=== PATIENT | female | born 1995 | race American Indian/Alaskan Native ===

== ENCOUNTER 2019-11-05 10:05 | Inpatient (IN) | payer MEDICAID ==
[2019-11-05] MEDS ORDERED: ceFAZolin/Water 2 GM/20 ML 2 GM/20 ML SYRINGE IV NR (11:00)
[2019-11-05] MEDS ORDERED: OXYTOCIN 20 UNIT/1000ML DRIP 20 UNITS/1,000 ML BAG IV SCH ×2 (11:00→15:00)
[2019-11-05 11:04] LABS: Basophils # (Auto) 0.1 K/mm3 (0.0-0.1); Basophils % (Auto) 0.7 % (0.0-1.8); Eosinophils # (Auto) 0.2 K/mm3 (0.0-0.4); Eosinophils % (Auto) 1.8 % (0.0-4.3); Hematocrit 35.2 % (30.3-42.9); Hemoglobin 11.6 gm/dl (10.1-14.3); Lymphocytes # (Auto) 3.9 K/mm3 (1.2-5.4); Lymphocytes % (Auto) 31.4 % (13.4-35.0); Mean Corpuscular HGB Conc 33 % (30-34); Mean Corpuscular Volume 83 fl (79-97); Monocytes # (Auto) 0.7 K/mm3 (0.0-0.8); Platelet Count 177 K/mm3 (140-440); Red Blood Count 4.23 M/mm3 (3.65-5.03)
[2019-11-05] MEDS: LACTATED RINGERS 1,000 ML IV SCH ×2 (11:14→12:12)
[2019-11-05] MEDS ORDERED: BICITRA ORAL LIQD 30ML PO NR (11:30)
[2019-11-05] MEDS ORDERED: FAMOTIDINE 20 MG/2 ML INJ IV SCH (11:30)
[2019-11-05] MEDS ORDERED: METOCLOPRAMIDE 10 MG/2 ML INJ IV SCH (11:30)
--- NOTE | 2019-11-05 12:36 | Anesthesia Consultation ---
Anesthesia Consult and Med Hx Date of service: 11/05/19 - Airway Anesthetic Teeth Evaluation: Good ROM Head & Neck: Adequate Mental/Hyoid Distance: Adequate Mallampati Class: Class II Intubation Access Assessment: Good - Pulmonary Exam CTA: Yes - Cardiac Exam Cardiac Exam: RRR - Pre-Operative Health Status ASA Pre-Surgery Classification: ASA2 Proposed Anesthetic Plan: Spinal - Pulmonary Hx Asthma: No COPD: No Hx Pneumonia: No - Cardiovascular System Hx Hypertension: No - Central Nervous System Hx Seizures: No Hx Psychiatric Problems: No - Endocrine Hx Renal Disease: No Hx End Stage Renal Disease: No Hx Hypothyroidism: No Hx Hyperthyroidism: No - Hematic Hx Anemia: No Hx Sickle Cell Disease: No - Other Systems Hx Alcohol Use: No
[2019-11-05] MEDS ORDERED: PROMETHAZINE 25 MG RECT SUPP PR PRN (12:43)
[2019-11-05] MEDS ORDERED: PROMETHAZINE 25 MG TAB PO PRN (12:43)
[2019-11-05] MEDS ORDERED: HYDROmorphone 1 MG/1 ML INJ IV PRN (12:43)
[2019-11-05] MEDS ORDERED: NALOXONE 0.4 MG/1 ML INJ IV PRN ×2 (12:43→14:21)
--- NOTE | 2019-11-05 12:43 | Anesthesia Day of Surgery ---
Anesthesia Day of Surgery - Day of Surgery Patient Examined: Yes Patient H&P Reviewed: Yes Patient is NPO: Yes
[2019-11-05] MEDS ORDERED: ceFAZolin/STERILE WATER 2 GM/20 ML SYRINGE IV ONE (12:58)
[2019-11-05] MEDS ORDERED: BUPIVACAINE /DEX-WATER 0.75% (2 ML) AMPULE INFILTRATI ONE (12:58)
[2019-11-05] MEDS ORDERED: DEXMEDETOMIDINE 200 MCG/2 ML VIAL IV ONE (12:58)
[2019-11-05] MEDS ORDERED: ONDANSETRON 4 MG/2 ML INJ IV PRN ×2 (13:00→14:21)
--- NOTE | 2019-11-05 13:03 | History and Physical Report ---
History of Present Illness Date of examination: 11/05/19 Date of admission: 11/05/19 10:05 Chief complaint: here for a second History of present illness: MAMADOU [determined by [facility]/MFM] Past History Past Surgical History: section - Obstetrical History Expected Date of Delivery: 11/04/19 Actual Gestation: 40 Week(s) 1 Day(s) : 2 Medications and Allergies Allergies Allergy/AdvReac Type Severity Reaction Status Date / Time No Known Allergies Allergy Verified 11/05/19 10:56 Home Medications Medication Instructions Recorded Confirmed Last Taken Type Vit-Fe Fumar-FA [ 1 tab PO QDAY 11/05/19 11/05/19 11/03/19 08:00 History Vitamin] Active Meds: Active Medications Citric Acid/Sodium Citrate (Bicitra) 30 ml PO ONCE NR Stop: 11/05/19 18:00 Last Admin: 11/05/19 12:11 Dose: 30 ml Documented by: Famotidine (Pepcid) 20 mg IV ONCE GABY Last Admin: 11/05/19 12:11 Dose: 20 mg Documented by: Hydromorphone HCl (Dilaudid) 0.5 mg IV Q5M PRN PRN Reason: BREAK Stop: 11/05/19 23:00 Oxytocin/Sodium Chloride (Pitocin/Ns 20 Unit/1000ml Drip) 20 units in 1,000 mls @ 0 mls/hr IV TITR GABY Lactated Ringer's (Lactated Ringers) 1,000 mls @ 2,250 mls/hr IV PREOP GABY Stop: 11/06/19 11:27 Last Admin: 11/05/19 12:12 Dose: 2,250 mls/hr Documented by: Cefazolin Sodium (Ancef/Sterile Water 2 Gm/20 Ml) 2 gm in 20 mls @ 80 mls/hr IV PREOP NR; Protocol Stop: 11/05/19 19:00 Metoclopramide HCl (Reglan) 10 mg IV ONCE GABY Stop: 11/05/19 18:00 Last Admin: 11/05/19 12:11 Dose: 10 mg Documented by: Naloxone HCl (Naloxone) 0.2 mg IV Q2MIN PRN PRN Reason: Res Rate </= 8 or 02 SAT < 92% Ondansetron HCl (Zofran) 4 mg IV Q8H PRN PRN Reason: Nausea And Vomiting Promethazine HCl (Phenergan) 25 mg PO Q6H PRN PRN Reason: Nausea And Vomiting Promethazine HCl (Phenergan) 25 mg HI Q6H PRN PRN Reason: Nausea And Vomiting Sodium Chloride (Sodium Chloride Flush Syringe 10 Ml) 10 ml IV PRN NR Stop: 11/15/19 12:59 Review of Systems All systems: negative - Vital Signs Vital signs: Vital Signs Temp Resp 98.3 F 11/05/19 12:21 11/05/19 12:21 Temp Pulse Resp BP Pulse Ox 98.3 F 11/05/19 12:21 11/05/19 12:21 - Physical Exam Lungs: Positive: Normal air movement Abdomen: Positive: distention. Negative: tenderness - Obstetrical FHR: auscultation normal Results Result Diagrams: 11/05/19 10:45 Abnormal lab results 11/05/19 Range/Units 10:45 WBC 12.3 H (4.5-11.0) K/mm3 All other labs normal. Assessment and Plan - Patient Problems (1) Previous delivery, antepartum Current Visit: Yes Status: Acute Plan to address problem: vs repeat discussed. Patient consented for and lysis of adhesions.
[2019-11-05] MEDS ORDERED: SODIUM CHLORIDE 0.9% IRR 1,500 ML BOTTLE IR ONE (13:27)
[2019-11-05] MEDS ORDERED: WATER FOR IRRIG STERILE 1,500 ML BOTTLE IR ONE (13:27)
[2019-11-05] MEDS ORDERED: dexAMETHasone 20 MG/5 ML VIAL ONE (14:15)
[2019-11-05] MEDS ORDERED: PHENYLEPHRINE/NS 1,000 MCG/10 ML SYRINGE (OR USE) IV ONE (14:15)
[2019-11-05] MEDS ORDERED: diphenhydrAMINE 50 MG/ML VIAL ONE (14:15)
[2019-11-05] MEDS ORDERED: ONDANSETRON 4 MG/2 ML INJ ONE (14:15)
[2019-11-05] MEDS ORDERED: OXYTOCIN 10 UNIT/1 ML INJ ONE (14:15)
[2019-11-05] MEDS ORDERED: KETOROLAC 30 MG/1 ML INJ ONE (14:16)
[2019-11-05] MEDS ORDERED: LANOLIN/ZINC/DIMETHICONE (LANSINOH) 7 GM TP PRN (14:21)
[2019-11-05] MEDS ORDERED: ACETAMINOPHEN 325 MG TAB PO PRN (14:21)
[2019-11-05] MEDS ORDERED: WITCH HAZEL/ GLYCERIN PAD TP PRN (14:21)
[2019-11-05] MEDS ORDERED: MORPHINE 4 MG/1 ML INJ IV PRN (14:21)
--- NOTE | 2019-11-05 14:29 | Operative Report ---
Operative Report Operative Report: Date of surgery: 11/05/2019 Preoperative diagnoses: Term , previous section, probable adhesions Postoperative diagnoses: The same. No adhesions were found. Operation: Lower segment transverse delivery Surgeon:Liza Cruz MD Pension Fund Manager: Jen Pathak CRNA Anesthesia: Spinal block Estimated blood loss:400 mL Complications: None Findings: There was a live baby girl in cephalic presentation weighing 6 pounds 14 ounces with Apgars of 8/9. The ovaries, fallopian tubes and the uterus were all grossly normal. No peritoneal adhesions were found within the pelvis. Procedure in detail: The patient was taken to the operating room and given a spinal block. Patient was placed in the straight supine position and a Brady catheter was inserted. The patient was prepped in the abdomen. The drapes were placed. A timeout was done. With the go ahead from the benefits specialist recruiter, a Pfannenstiel incision was made. This incision was carried across the subcutaneous layer to the fascia which was also divided transversely. The recti abdominis muscle flaps were stripped from the fascia using a combination of blunt and sharp dissections. The muscles were in the midline to gain access to the anterior parietal peritoneum which was divided after excluding any underlying viscera. The access to the peritoneal cavity was then widened by manual stretching. The bladder blade was applied. The utero vesicle peritoneal flap was divided transversely allowing the bladder to be displaced caudally. The uterine incision was placed in the lower segment transversely. The uterine incision was carried to the decidual layer. The uterine incision was extended on both sides using the bandage scissors. The amniotic sac was ruptured with clear fluid. The head was lifted out of the false maternal pelvis and delivered through the incision using fundal pressure. The airways were bulb suctioned beginning with the mouth. Continuing fundal pressure combined with traction on the mandibular processes of the jaw delivered the rest of the baby. The umbilical cord was double clamped and divided. The baby was carefully transferred to the pediatric team. The placenta was manually removed from the uterine cavity. The uterine cavity was explored and was empty of any placental remnants. The uterine incision was repaired in 2 layers with #1 Vicryl. The surgical line on the uterus was hemostatic. Blood and clots were cleared from the peritoneal cavity. The ante rior parietal peritoneum was repaired with #1 Vicryl. The fascia was repaired with #1 Vicryl. The subcutaneous layer was made hemostatic using the Bovie before the skin was closed subcuticularly with 4-0 Vicryl. There were no complications. The estimated blood loss was 400 mL. All sponges and instrument counts were correct. Patient was safely transferred to the recovery room.
--- NOTE | 2019-11-05 14:38 | Progress Note ---
Spinal Anesthesia Block - Spinal Anesthesia Block Start Time: 13:00 Stop Time: 13:04 Performed by:: JOCELYN SALAZAR Procedure: Spinal anesthesia block is being performed for repeat . H&P, labs have been reviewed. Patient's questions and concerns have been answered. Informed consent has been performed. Timeout has was performed. Patient in sitting position on side of bed. Sterile prep and drape was performed. 3 mL 1% lido maryam skin wheal at L 3-L 4. Needle introducer advanced. 25-gauge spinal needle advanced, clear CSF negative blood. 1.5 mL 0.75% bupivacaine with dextrose and 10 mcg Precedex spinal dose was given. All needles removed. Patient tolerated procedure well.
--- NOTE | 2019-11-05 14:39 | Post Anesthesia Evaluation ---
- Post Anesthesia Evaluation Airway Patent: Yes Stable Respiratory Function: Yes Nausea/Vomiting: No Temp > 96.8F: Yes Pain Manageable: Yes Adequeate Hydration: Yes Anesthesia Complications: No Block Receding Appropriately: Yes Patient on Ventilator: No
[2019-11-05] MEDS: D5W/LACTATED RINGERS 1,000 ML IV SCH (18:10)
[2019-11-05] MEDS ORDERED: D5W/LACTATED RINGERS 1,000 ML IV ONE (18:10)
[2019-11-05] MEDS: ceFAZolin/NS 1 GM/50 ML 1 GM/50 ML BAG IV SCH (23:19)
[2019-11-05] MEDS: KETOROLAC 30 MG/1 ML INJ IV PRN (23:19)
[2019-11-06] MEDS: KETOROLAC 30 MG/1 ML INJ IV PRN (05:55)
[2019-11-06] MEDS: ceFAZolin/NS 1 GM/50 ML 1 GM/50 ML BAG IV SCH (05:56)
[2019-11-06] MEDS: D5W/LACTATED RINGERS 1,000 ML IV SCH (05:57)
[2019-11-06 06:11] LABS: Hematocrit 32.7 % (30.3-42.9); Hemoglobin 10.7 gm/dl (10.1-14.3)
--- NOTE | 2019-11-06 10:18 | Progress Note ---
Assessment and Plan - Patient Problems (1) Status post repeat low transverse section Current Visit: Yes Status: Acute Plan to address problem: Continue routine PP orders Keep dressing clean and dry, remove on POD#2 Anticipate d/c home in 24-48 hrs (2) Anemia Current Visit: Yes Status: Acute Qualifiers: Anemia type: other cause Other causes of anemia: acute posthemorrhagic Qualified Code(s): D62 - Acute posthemorrhagic anemia Plan to address problem: Asymptomatic Continue daily oral iron supplementation Increase iron rich foods into diet Subjective - Subjective Date of service: 11/06/19 Principal diagnosis: S/P repeat LTCS;POD#1 Interval history: See admission H & P; OB operative note and PP progress notes Patient reports: appetite normal, voiding normally, pain well controlled, flatus, ambulating normally : doing well, bottle feeding (and ) Objective - Vital Signs Latest vital signs: Vital Signs Temp Pulse Resp BP BP Pulse Ox 11/06/19 04:21 98.2 F 63 20 109/53 98 11/06/19 00:11 98.9 F 59 L 20 130/77 97 11/05/19 20:59 98.2 F 68 20 127/74 100 11/05/19 16:45 98.2 F 56 L 18 123/70 11/05/19 15:55 97.8 F 51 L 17 117/56 97 11/05/19 15:40 55 L 18 108/49 97 11/05/19 15:25 52 L 15 104/62 98 11/05/19 15:10 97.6 F 53 L 14 115/69 95 11/05/19 14:55 52 L 16 110/59 96 11/05/19 14:40 97.5 F L 60 12 112/53 97 11/05/19 14:27 96.8 F L 56 L 20 103/40 97 11/05/19 12:58 66 16 119/56 99 11/05/19 12:21 98.3 F 20 Intake and Output 11/05/19 11/06/19 11/06/19 23:59 07:59 15:59 Intake Total 290 1240 Output Total 550 1400 Balance -260 -160 Intake: IV 50 1000 ANCEF/NS 1 GM/50 ML 1 gm 50 In 50 ml @ 100 mls/hr IV Q8H GABY Rx#:[id number] D5lr 1,000 ml @ 125 mls/ 1000 hr IV DIRECT GABY Rx#: [id number] Oral 240 240 Output: Urine 550 1400 Indwelling Catheter 400 1200 Uretheral (Brady) 150 Void 200 Other: Total, Intake Amount 240 240 Total, Output Amount 400 200 # Voids Void 1 Estimated Blood Loss 400 - Exam Breasts: Present: normal Cardiovascular: Present: Regular rate Lungs: Present: Normal air movement Abdomen: Present: soft, tenderness Uterus: Present: firm, fundal height below umbilicus (U-2) Extremities: Present: normal Deep Tendon Reflex Grade: Normal +2 Incision: Present: dressed (no shadow drainage or bleeding noted) - Labs Labs: Abnormal lab results 11/05/19 Range/Units 10:45 WBC 12.3 H (4.5-11.0) K/mm3
[2019-11-06] MEDS: PRENATAL VIT27-FE FUMARATE-FOLIC ACID VIT TAB PO SCH (12:27)
[2019-11-06] MEDS: FERROUS SULFATE 325 MG TAB PO SCH (12:27)
[2019-11-06] MEDS: HYDROcodone/ACETAMINOPHEN 5-325 MG TAB PO PRN ×2 (14:46→20:40)
[2019-11-07] MEDS: IBUPROFEN 800 MG TAB PO PRN (00:04)
[2019-11-07] MEDS: HYDROcodone/ACETAMINOPHEN 5-325 MG TAB PO PRN ×3 (05:41→23:20)
--- NOTE | 2019-11-07 11:47 | Progress Note ---
Assessment and Plan A: /postop day 2 S/P repeat LTCS. Anemia. P: Continue iron supplementation. Encouraged ambulation. Aniticipate discharge home tomorrow. Subjective - Subjective Date of service: 11/07/19 Principal diagnosis: S/P repeat LTCS;POD#2 Interval history: /postop day 2. Patient reports: appetite normal, voiding normally, pain well controlled, flatus, bowel movement, ambulating normally, no dizzy ambulation, no nauseated : doing well Objective - Vital Signs Latest vital signs: Vital Signs Temp Pulse Resp BP BP Pulse Ox 11/07/19 07:48 97.9 F 82 14 110/62 99 11/07/19 05:41 20 11/07/19 00:49 96.7 F L 64 20 115/64 97 11/07/19 00:04 20 11/06/19 20:40 16 11/06/19 16:45 98.2 F 76 18 129/67 98 11/06/19 12:40 97.5 F L 75 18 115/63 99 Intake and Output 11/06/19 11/07/19 11/07/19 23:59 07:59 15:59 Intake Total 435 251 5901 Balance 560 622 8996 Intake: Oral 240 1600 Intake, Free Water 360 360 Other: Total, Intake Amount 240 800 Voiding Method Toilet # Voids Void 2 1 - Exam Cardiovascular: Present: Regular rate Lungs: Present: Clear to auscultation Abdomen: Present: normal appearance, soft, normal bowel sounds. Absent: distention, tenderness, guarding, rigidity Uterus: Present: normal, firm, fundal height below umbilicus. Absent: bogginess, tenderness Extremities: Present: normal. Absent: tenderness, edema Incision: Present: normal, dry, intact
[2019-11-07] MEDS: FERROUS SULFATE 325 MG TAB PO SCH (12:26)
[2019-11-07] MEDS: PRENATAL VIT27-FE FUMARATE-FOLIC ACID VIT TAB PO SCH (12:26)
[2019-11-08] MEDS: IBUPROFEN 800 MG TAB PO PRN (05:37)
[2019-11-08] MEDS: FERROUS SULFATE 325 MG TAB PO SCH (10:50)
[2019-11-08] MEDS: PRENATAL VIT27-FE FUMARATE-FOLIC ACID VIT TAB PO SCH (10:50)
--- NOTE | 2019-11-08 11:37 | Progress Note ---
Assessment and Plan A: /postop day 3 S/P repeat LTCS. Anemia. P: Discharge patient home today. Discussed with patient discharge instructions and warning signs. Care of incision and activity restrictions discussed with patient. Advised patient to avoid intercourse, lifting, heavy housework, driving, stair climbing, tub baths (patient may take showers). Advised patient to continue taking her vitamins and iron supplements at home. Advised patient to follow up at [facility] in 1 week for incision check. Patient voiced understanding of all instructions. Subjective - Subjective Date of service: 11/08/19 Principal diagnosis: S/P repeat LTCS;POD#3 Interval history: /postop day 3. Doing well. Patient desires discharge home today. Patient reports: appetite normal, voiding normally, pain well controlled, flatus, ambulating normally, no dizzy ambulation, no nauseated [place]: doing well Objective - Vital Signs Latest vital signs: Vital Signs Temp Pulse Resp BP Pulse Ox 11/08/19 08:32 98.3 F 68 20 105/42 11/08/19 05:37 20 11/08/19 00:00 98.6 F 72 16 109/67 11/07/19 23:20 20 11/07/19 16:38 98.2 F 82 14 115/54 97 Intake and Output 11/07/19 11/08/19 11/08/19 23:59 07:59 15:59 Intake Total 1900 240 Balance 1900 240 Intake: Oral 1600 240 Intake, Free Water 300 Other: Total, Intake Amount 800 240 Voiding Method Toilet # Voids 1 Void 1 1 1 - Exam Cardiovascular: Present: Regular rate, Normal S1, Normal S2, No murmurs Lungs: Present: Clear to auscultation Abdomen: Present: normal appearance, soft, normal bowel sounds. Absent: distention, tenderness, guarding, rigidity Uterus: Present: normal, firm, fundal height below umbilicus. Absent: bogginess, tenderness Extremities: Present: normal. Absent: tenderness, edema Incision: Present: normal, dry, intact
--- NOTE | 2019-11-08 11:40 | Discharge Summary ---
Providers - Providers Date of Admission: 11/05/19 10:05 Date of discharge: 11/08/19 Attending physician: TOREY LATHAM MD Primary care physician: TOREY LATHAM MD Hospitalization Reason for admission: section Delivery: Procedure: repeat low transverse Incision: normal, dry, intact Other procedures: none complications: none Discharge diagnosis: IUP at term delivered [place] baby: female Pertinent studies: Labs Hospital course: Normal hospital course. Condition at discharge: Good Disposition: DC-01 TO HOME OR SELFCARE - Discharge Diagnoses (1) Term delivered Status: Acute (2) Anemia Status: Acute Plan - Discharge Medications Prescriptions: HYDROcodone/APAP 5-325 [[place] 5/325] 1 - 2 each PO Q6HR PRN #30 tablet PRN Reason: Pain - Provider Discharge Summary Activity: routine, no sex for 6 weeks, no heavy lifting 4 weeks, no strenuous exercise Diet: routine Instructions: routine Additional instructions: Continue taking your vitamins and iron supplements at home. Call your doctor immediately for: * Fever > 100.5 * Heavy vaginal bleeding ( >1 pad per hour) * Severe persistent headache * Shortness of breath * Reddened, hot, painful area to leg or breast * Drainage or odor from incision. * Keep incision clean and dry at all times and follow doctor's instructions regarding bathing/showering - Follow up plan Follow up: EHSAN WELSH MD [Staff Physician] - 7 Days
[2019-11-08 13:44] VITALS: BP 124/79
== END 2019-11-08 13:30 | disposition home or self-care (01) | DRG 765 ==
LOC: APU 10:05 → OB 15:54
PROVIDERS: ADMIT Obstetrics & Gynecology; ATTEND Obstetrics & Gynecology
PROC: 10D00Z1 Extraction of Products of Conception, Low, Open Approach (ICD-10-PCS; principal; 2019-11-05)
DX: O34.219 Maternal care for unspecified type scar from previous cesarean delivery (principal); D62 Acute posthemorrhagic anemia; Z3A.40 40 weeks gestation of pregnancy; Z37.0 Single live birth; O90.81 Anemia of the puerperium
CPT/HCPCS: 36415; 85014; 85018; 85025; 86592; 86850; 86900; 86901; G0378; A6250; J0690; J1100; J1200; J1885; J2270; J2370; J2405; J2590; J2765; J3490; J7120; J7121

== ENCOUNTER 2020-01-30 22:03 | Emergency (ER) | payer MEDICAID ==
[2020-01-30 22:35] VITALS: BP 122/67
== END 2020-01-30 23:00 | disposition left against medical advice (07) ==
LOC: ED 22:03
DX: R21 Rash and other nonspecific skin eruption (principal); Z53.21 Procedure and treatment not carried out due to patient leaving prior to being seen by health care provider